=== PATIENT | female | born 1985 | race Caucasian/White ===

== ENCOUNTER 2018-01-25 11:28 | Emergency (ER) | payer OTHER ==
[2018-01-25] MEDS ORDERED: Ketorolac Tromethamine 60 MG/2 ML VIAL ONE (12:17)
--- NOTE | 2018-01-25 12:53 | RAD ---
RIGHT KNEE FOUR VIEWS: Indications: Injury and pain to knee. Comparison: November 2016 FINDINGS: Joint spaces are normally maintained. No fracture is seen. No joint effusion. Sclerosis along the medial cortex in the proximal tibia is stable from prior exam consistent with non -ossifying fibroma. IMPRESSION: No acute abnormality. POS: [facility]
== END 2018-01-25 12:44 | disposition home or self-care (01) ==
LOC: SCSER 11:28
DX: S86.911A Strain of unspecified muscle(s) and tendon(s) at lower leg level, right leg, initial encounter (principal); F43.10 Post-traumatic stress disorder, unspecified; F17.210 Nicotine dependence, cigarettes, uncomplicated; X50.1XXA Overexertion from prolonged static or awkward postures, initial encounter
CPT/HCPCS: 96372; J1885

== ENCOUNTER 2018-04-06 16:18 | Emergency (ER) | payer OTHER ==
[2018-04-06 16:45] LABS: #Basophils 0.1 thou/uL (0.0-0.2); #Eosinphils 0.1 thou/uL (0.0-0.7); #Lymphocytes 1.8 thou/uL (1.20-3.40); #Monocytes 0.5 thou/uL (0.11-0.59); #Neutrophils 6.2 thou/uL (1.40-6.50); %Basophils 1.2 % (0.0-1.0); %Eosinophils 0.7 % (0.0-10.0); %Lymphocytes 20.9 % (21.0-51.0); %Monocytes 5.5 % (0.0-10.0); %Neutrophils 71.7 % (42.0-75.0); Hemoglobin 14.8 g/dL (12.0-16.0); Mean Corpuscular HGB CONC 34.4 g/dL (32.0-36.0); Mean Corpuscular Hemoglobin 31.2 pg (27.0-31.0); Mean Corpuscular Volume 90.5 fL (78.0-98.0); Platelet Count 207 thou/uL (130-400); RBC Distribution Width 11.3 % (11.5-14.5); Red Blood Cell (RBC) Count 4.74 mill/uL (4.20-5.40); White Blood Cell (WBC) Count 8.7 thou/uL (4.8-10.8)
[2018-04-06 17:03] LABS: ALT (SGPT) 13 U/L (8-55); AST (SGOT) 17 U/L (5-34); Alkaline Phosphatase 44 U/L (40-150); Anion Gap 15 mmol/L (10-20); BUN (Urea Nitrogen) 10 mg/dL (7.0-18.7); Bilirubin, Total 0.8 mg/dL (0.2-1.2); CK (CPK) 57 U/L (29-168); Calc. Creatinine Clearance 0 mL/min (70-130); Calcium 9.9 mg/dL (7.8-10.44); Carbon Dioxide 23 mmol/L (22-29); Chloride 106 mmol/L (98-107); Estimated GFR-MDRD 64; Globulin 3.2 g/dL (2.4-3.5); Glucose 78 mg/dL (70-105); Lipase 10 U/L (8-78); Potassium 3.7 mmol/L (3.5-5.1); Protein, Total 8.2 g/dL (6.0-8.3); Sodium 140 mmol/L (136-145)
[2018-04-06 17:04] LABS: CKMB 0.4 ng/mL (0-6.6); Troponin I Less than 0.010 ng/mL (< 0.028)
--- NOTE | 2018-04-06 17:14 | RAD ---
UPRIGHT PORTABLE CHEST 1 VIEW: Date: 04/06/18 HISTORY: 32-year-old female with history of chest pain. Dizziness and lightheadedness. COMPARISON: 09/27/14. FINDINGS: Heart size is normal. Left ICD. The lungs are clear. No confluent pneumonia, overt edema, or pleural effusion. IMPRESSION: No acute intrathoracic disease. POS: [facility]
[2018-04-06] MEDS ORDERED: Ketorolac Tromethamine 30 MG/ML VIAL ONE (18:19)
[2018-04-06 18:55] LABS: Bilirubin Negative (Negative); Blood, Urine Negative (Negative); Clarity Slightly Cloudy (Clear); Glucose, Urine (Dipstick) Negative (Negative); Leukocyte Negative (Negative); Nitrite Negative (Negative); Protein, Urine (Dipstick) Negative (Neg-Trace); Urobilinogen 0.2 mg/dL (0.2-1.0)
[2018-04-06 18:56] LABS: Pregnancy Test - Urine (BHCG) Negative (Negative); Pregu Control Background? CLEAR/WHITE (CLR/WHITE); Pregu Control Bar Appear? YES (CONTROL BAR)
[2018-04-06 19:04] LABS: Amphetamine Not Detected (NotDetected); Barbiturates Screen Not Detected (NotDetected); Benzodiazepine Screen Not Detected (NotDetected); Cocaine Metabolite Screen Not Detected (NotDetected); Medtox Control Line Valid? VALID (VALID); Methadone Not Detected (NotDetected); Methamphetamine Not Detected (NotDetected); Opiate Screen Not Detected (NotDetected); Oxycodone Screen Not Detected (NotDetected); Phencyclidine (PCP) Not Detected (NotDetected); THC/Cannabinoid Screen Not Detected (NotDetected); Tricyclic Screen Not Detected (NotDetected)
[2018-04-06 19:50] LABS: Troponin I Less than 0.010 ng/mL (< 0.028)
== END 2018-04-06 19:49 | disposition home or self-care (01) ==
LOC: SCSER 16:18
DX: R07.9 Chest pain, unspecified (principal); Z71.6 Tobacco abuse counseling; F17.200 Nicotine dependence, unspecified, uncomplicated; F43.10 Post-traumatic stress disorder, unspecified
CPT/HCPCS: 71045; 80053; 80306; 81003; 81025; 82550; 82553; 83690; 84484; 85025; 85379; 93005; 96361; 96374; 99406; J1885

== ENCOUNTER 2018-04-10 15:14 | Emergency (ER) | payer OTHER ==
[2018-04-10 16:03] LABS: #Basophils 0.1 thou/uL (0.0-0.2); #Eosinphils 0.1 thou/uL (0.0-0.7); #Lymphocytes 2.1 thou/uL (1.20-3.40); #Monocytes 0.5 thou/uL (0.11-0.59); #Neutrophils 5.4 thou/uL (1.40-6.50); %Basophils 0.9 % (0.0-1.0); %Eosinophils 1.2 % (0.0-10.0); %Lymphocytes 25.1 % (21.0-51.0); %Monocytes 6.2 % (0.0-10.0); %Neutrophils 66.5 % (42.0-75.0); Hemoglobin 14.2 g/dL (12.0-16.0); Mean Corpuscular HGB CONC 33.2 g/dL (32.0-36.0); Mean Corpuscular Hemoglobin 30.3 pg (27.0-31.0); Mean Corpuscular Volume 91.5 fL (78.0-98.0); Platelet Count 200 thou/uL (130-400); RBC Distribution Width 11.3 % (11.5-14.5); Red Blood Cell (RBC) Count 4.68 mill/uL (4.20-5.40); White Blood Cell (WBC) Count 8.2 thou/uL (4.8-10.8)
--- NOTE | 2018-04-10 16:09 | RAD ---
COMPARISON: 04/06/18 HISTORY: Chest pain. FINDINGS: Single view of the chest shows a normal sized cardiomediastinal silhouette. There is a pacemaker, unc hanged in position. There is no evidence of consolidation, mass or pleural effusion. IMPRESSION: No evidence of acute cardiopulmonary disease. POS: [facility]
[2018-04-10 16:16] LABS: ALT (SGPT) 13 U/L (8-55); AST (SGOT) 15 U/L (5-34); Albumin 4.8 g/dL (3.5-5.0); Alkaline Phosphatase 38 U/L (40-150); Anion Gap 12 mmol/L (10-20); BUN (Urea Nitrogen) 14 mg/dL (7.0-18.7); Bilirubin, Total 0.5 mg/dL (0.2-1.2); CK (CPK) 60 U/L (29-168); Calc. Creatinine Clearance 0 mL/min (70-130); Calcium 9.5 mg/dL (7.8-10.44); Carbon Dioxide 26 mmol/L (22-29); Chloride 105 mmol/L (98-107); Estimated GFR-MDRD 57; Globulin 2.9 g/dL (2.4-3.5); Glucose 85 mg/dL (70-105); Magnesium 2.5 mg/dL (1.6-2.6); Potassium 3.8 mmol/L (3.5-5.1); Protein, Total 7.7 g/dL (6.0-8.3); Sodium 139 mmol/L (136-145)
[2018-04-10 16:19] LABS: CKMB 0.3 ng/mL (0-6.6); Troponin I Less than 0.010 ng/mL (< 0.028)
[2018-04-10 16:46] LABS: BHCG - Serum Negative (NEGATIVE); Pregs Control Background? CLEAR/WHITE (CLR/WHITE); Pregs Control Bar Appear? YES (CONTROL BAR)
== END 2018-04-10 17:36 | disposition home or self-care (01) ==
LOC: SCSER 15:14
DX: R00.0 Tachycardia, unspecified (principal); F43.10 Post-traumatic stress disorder, unspecified
CPT/HCPCS: 36415; 71045; 80053; 82553; 83735; 84484; 84703; 85025; 93005

== ENCOUNTER 2018-09-29 20:47 | Emergency (ER) | payer SELFPAY ==
--- NOTE | 2018-09-29 21:38 | RAD ---
AP VIEW CHEST: 09/29/18 HISTORY: Dyspnea. AP view chest obtained on 09/29/18. Comparison made to previous exam from 04/10/18. AP view chest demonstrates an intracardiac pacing device. The lungs are well aerated. No evidence of active intrathoracic disease seen. No evidence of effusions, pneumonia, or pneumothorax seen. IMPRESSION: Unremarkable AP view chest. POS: [facility]
[2018-09-29 21:43] LABS: #Basophils 0.1 thou/uL (0.0-0.2); #Eosinphils 0.2 thou/uL (0.0-0.7); #Lymphocytes 1.8 thou/uL (1.20-3.40); #Monocytes 0.6 thou/uL (0.11-0.59); #Neutrophils 3.4 thou/uL (1.40-6.50); %Basophils 1.3 % (0.0-1.0); %Eosinophils 2.9 % (0.0-10.0); %Lymphocytes 29.4 % (21.0-51.0); %Monocytes 9.4 % (0.0-10.0); Hemoglobin 13.8 g/dL (12.0-16.0); Mean Corpuscular HGB CONC 32.9 g/dL (32.0-36.0); Mean Corpuscular Hemoglobin 31.2 pg (27.0-31.0); Mean Corpuscular Volume 94.8 fL (78.0-98.0); Mean Platelet Volume 7.3 fL (7.4-10.4); Platelet Count 196 thou/uL (130-400); RBC Distribution Width 11.1 % (11.5-14.5); Red Blood Cell (RBC) Count 4.42 mill/uL (4.20-5.40)
[2018-09-29 21:59] LABS: ALT (SGPT) 15 U/L (8-55); AST (SGOT) 14 U/L (5-34); Albumin 4.5 g/dL (3.5-5.0); Alkaline Phosphatase 41 U/L (40-150); Anion Gap 12 mmol/L (10-20); BUN (Urea Nitrogen) 14 mg/dL (7.0-18.7); Bilirubin, Total 0.3 mg/dL (0.2-1.2); CK (CPK) 57 U/L (29-168); Calc. Creatinine Clearance 0 mL/min (70-130); Calcium 8.9 mg/dL (7.8-10.44); Carbon Dioxide 25 mmol/L (22-29); Chloride 107 mmol/L (98-107); Estimated GFR-MDRD 43; Globulin 2.9 g/dL (2.4-3.5); Glucose 90 mg/dL (70-105); Potassium 3.7 mmol/L (3.5-5.1); Protein, Total 7.4 g/dL (6.0-8.3); Sodium 140 mmol/L (136-145)
[2018-09-29] MEDS ORDERED: Dexamethasone 10 MG/ML VIAL ONE (22:17)
== END 2018-09-29 22:41 | disposition home or self-care (01) ==
LOC: SCSER 20:47
DX: J20.9 Acute bronchitis, unspecified (principal); F43.10 Post-traumatic stress disorder, unspecified; F17.200 Nicotine dependence, unspecified, uncomplicated
CPT/HCPCS: 71045; 80053; 82550; 83880; 84484; 85025; 85379; 93005; J1100; J7620

== ENCOUNTER 2019-01-28 16:13 | Emergency (ER) | payer MEDICAID, OTHER, SELFPAY | END 2019-01-28 16:43 | disposition home or self-care (01) | LOC: SCSER 16:13 | DX: S16.1XXA Strain of muscle, fascia and tendon at neck level, initial encounter (principal); F43.10 Post-traumatic stress disorder, unspecified; F17.210 Nicotine dependence, cigarettes, uncomplicated; Z79.899 Other long term (current) drug therapy; W22.8XXA Striking against or struck by other objects, initial encounter | CPT/HCPCS: 99283 ==

== ENCOUNTER 2019-06-04 16:40 | Day surgery (SDC) | payer OTHER ==
[2019-06-04] MEDS ORDERED: Iothalamate Meglumine 60% 50 ML VIAL FS ONE (17:09)
[2019-06-04] MEDS ORDERED: Midazolam HCl 2 mg/2 ml Vial ONE (17:29)
[2019-06-04] MEDS ORDERED: Fentanyl 100 MCG/2 ML VIAL ONE (17:29)
--- NOTE | 2019-06-04 18:50 | OP ---
DATE OF PROCEDURE: 06/04/2019 PREOPERATIVE DIAGNOSIS: Right distal ureteral stone. POSTOPERATIVE DIAGNOSIS: Right distal ureteral stone. PROCEDURES PERFORMED: Cystoscopy, right retrograde, and right stent. ANESTHESIA: General. ESTIMATED BLOOD LOSS: Minimal. FINDINGS: There is a right distal ureteral stone. It could be seen on her fluoroscopic KUB. DRAINS PLACED: A 4.8 x 22 Polaris double-J stent without a string attached. DESCRIPTION OF PROCEDURE: After obtaining written and verbal consent from the patient after receiving IV Ancef, she was taken to the operating suite. She was placed in the supine position on the treatment table. She was given a general anesthetic and oral intubation. She was positioned in a dorsal lithotomy position and prepped and draped, and C-arm was brought in. Cystoscopy was performed with a 22-Wolof sheath, this was well lubricated, passed under direct vision through the female urethra into the urinary bladder with aid of a 30-degree lens and video camera and monitor. The bladder was examined with both 30 and 70-degree lens. There was no tumor, foreign body, stone, or fistula. There was no evidence of urethral diverticulum or stenosis. Fluoroscopy was then used. Stone could be seen. We placed the catheter open-ended 5-Wolof into the right ureteral orifice, injecting contrast in a retrograde manner. The stone was quite distal and dilated above it. We could not get a guidewire by it, so we brought an angle-tipped Glidewire that we were able to easily manipulate by it. The open-ended catheter was then passed up in the region of renal pelvis. The Glidewire was removed. Contrast was injected to fill out the renal pelvis. The guidewire was placed through the open-ended catheter. The open-ended catheter was removed, and then the stent was brought in and placed over the guidewire and pushed up into place with aid of a pusher, so its proximal end coiled in the renal pelvis and its distal end coiled in the bladder when the wire was removed. It was effluxing a clear to light pink urine. There was no cloudiness or purulence or odor to it. The bladder was drained. The instruments were removed. She was taken out of the dorsal lithotomy position, awakened, extubated, and taken by stretcher to recovery room. Job ID: [id number]
[2019-06-04] MEDS ORDERED: Acetaminophen/Codeine 30-300mg Tablet ONE (19:31)
--- NOTE | 2019-06-04 23:47 | CON ---
DATE OF CONSULTATION: 06/04/2019 HISTORY OF PRESENT ILLNESS: This is a 34-year-old white female transferred over here from [place]. She had been in the ER twice in the last 2 days with right flank pain. Two days ago, a CT scan showed a 4 mm right distal ureteral stone with right hydro. Blood work was all normal at that time. Her pain was controlled. She went home. She came back with much worse pain today, nausea, vomiting, could not get her pain controlled. Her urinalysis was normal. Blood work was not done. KUB was done, but no other CAT scan. She was sent over here, because they could not get her pain restored under good control, coming over for stent. ALLERGIES: CIPRO, PENICILLIN AND LATEX. MEDICATIONS: Normally, she takes no medicine. She is on some Tylenol No. 3. PAST SURGICAL HISTORY: x3, BTL, and her current test is negative. She has had knee and wrist surgery, but no artificial joints. She has had a cholecystectomy. She had a heart ablation for ventricular tachycardia and she had a pacemaker placed. PHYSICAL EXAMINATION: VITAL SIGNS: Currently stable. She will receive Ancef 2 g go to the OR for cysto, right retrograde and right stent. This has all been discussed with her. All questions have been answered. Job ID: [id number]
--- NOTE | 2019-06-05 10:39 | RAD ---
RETROGRADE IVP: EXPOSURE: 7.87 mGy, 1 minute 1 second. FINDINGS: Single fluoroscopic view demonstrates retrograde opacification of what is likely the right intrarenal and extrarenal collecting system. A portion of a ureteral stent is noted. IMPRESSION: Intraoperative fluoroscopy as above. POS: [facility]
== END 2019-06-04 19:45 | disposition home or self-care (01) ==
LOC: SDC 16:40
PROVIDERS: ATTEND Urology
PROC: 0T768DZ Dilation of Right Ureter with Intraluminal Device, Via Natural or Artificial Opening Endoscopic (ICD-10-PCS; principal; 2019-06-04)
DX: N20.1 Calculus of ureter (principal); Z88.0 Allergy status to penicillin; Z88.1 Allergy status to other antibiotic agents; Z91.040 Latex allergy status; Z91.048 Other nonmedicinal substance allergy status
CPT/HCPCS: 74420; C1758; C1769; J0690; J2250; J3010

== ENCOUNTER 2019-06-25 07:58 | Day surgery (SDC) | payer OTHER ==
[2019-06-22 08:33] VITALS: BMI 22.1
[2019-06-25 09:31] LABS: #Basophils 0.1 thou/uL (0.0-0.2); #Eosinphils 0.2 thou/uL (0.0-0.7); #Lymphocytes 1.8 thou/uL (1.20-3.40); #Monocytes 0.4 thou/uL (0.11-0.59); #Neutrophils 3.3 thou/uL (1.40-6.50); %Basophils 1.3 % (0.0-1.0); %Eosinophils 3.5 % (0.0-10.0); %Monocytes 7.2 % (0.0-10.0); Hemoglobin 14.2 g/dL (12.0-16.0); Mean Corpuscular HGB CONC 34.2 g/dL (32.0-36.0); Mean Corpuscular Hemoglobin 32.7 pg (27.0-31.0); Mean Corpuscular Volume 95.4 fL (78.0-98.0); Mean Platelet Volume 7.9 fL (7.4-10.4); Platelet Count 242 thou/uL (130-400); RBC Distribution Width 11.1 % (11.5-14.5); Red Blood Cell (RBC) Count 4.34 mill/uL (4.20-5.40); White Blood Cell (WBC) Count 5.7 thou/uL (4.8-10.8)
[2019-06-25 09:45] LABS: Anion Gap 11 mmol/L (10-20); BUN (Urea Nitrogen) 11 mg/dL (7.0-18.7); Calc. Creatinine Clearance 69 mL/min (70-130); Calcium 9.2 mg/dL (7.8-10.44); Carbon Dioxide 25 mmol/L (22-29); Chloride 104 mmol/L (98-107); Estimated GFR-MDRD 59; Glucose 88 mg/dL (70-105); Potassium 3.8 mmol/L (3.5-5.1); Sodium 136 mmol/L (136-145)
[2019-06-25] MEDS ORDERED: Iothalamate Meglumine 60% 50 ML VIAL FS ONE (10:01)
[2019-06-25] MEDS ORDERED: Fentanyl 100 MCG/2 ML VIAL ONE ×2 (10:11→11:27)
[2019-06-25] MEDS ORDERED: Midazolam HCl 2 mg/2 ml Vial ONE (10:11)
[2019-06-25] MEDS ORDERED: HYDROcodone/Acetaminophen 5/325 mg Tablet ONE (12:41)
--- NOTE | 2019-06-25 13:01 | RAD ---
RETROGRADE PYELOGRAM: Date: 04/25/2020 HISTORY: Right-sided renal stone disease. FINDINGS: Eight images are provided from a retrograde pyelogram. Initial images demonstrate a stent overlying t he right ureter. Later imaging demonstrates removal of stent. Contrast media within the intrarenal co llecting system on the right demonstrates mild blunting of the calices, which may signify a mild degr ee of hydronephrosis. IMPRESSION: Mild blunting of the calices on the right. Removal of right stent. POS: [facility]
--- NOTE | 2019-06-25 13:30 | OP ---
DATE OF PROCEDURE: 06/25/2019 PREOPERATIVE DIAGNOSES: 1. Right ureteral stone. 2. Right ureteral stent. POSTOPERATIVE DIAGNOSES: 1. Right ureteral stone. 2. Right ureteral stent. PROCEDURES PERFORMED: 1. Cystoscopy. 2. Removal of right stent. 3. Right rigid ureteroscopy. 4. Right retrograde. ANESTHETIC: General. ESTIMATED BLOOD LOSS: Minimal. FINDINGS: The stent was in good condition, it was patent. A right ureteroscopy failed to show any evidence of any ureteral stones or abnormality of the ureter. There is good efflux of urine after the retrograde study. Stent was not replaced. DESCRIPTION OF PROCEDURE: After obtaining written and verbal consent from the patient, after receiving IV antibiotics, she was taken to the operating suite. She was placed in supine position on the treatment table. PlexiPulses were placed on her lower extremities and turned on. She was given a general anesthetic and oral obturator intubation. She was placed in the dorsal lithotomy position and sterilely prepped and draped. Cystoscopy was performed with a 22-Faroese sheath. This was well lubricated and passed under direct vision through the female urethra into the bladder with aid of a 30-degree lens and video camera and monitor. The bladder was filled and emptied 3 times and then the distal end of double-J stent was grasped and brought out through the urethral meatus. A guidewire was fed up through this, and using fluoroscopic guidance, it was placed up in the position of the renal pelvis. The stent was removed and discarded. A small caliber graduated rigid ureteroscope was brought in and passed under direct vision through the female urethra into the bladder and up the right ureter all the way up to the right renal pelvis. There were no stones evident. We looked at the ureter on the way out and did not see any stones or abnormality either. We actually reviewed her CAT scan from 06/02. There was no evidence of any right renal stones. We shot contrast up this right side by placing a Councill tip catheter over the guidewire and up in the region of renal pelvis, removed the guidewire, injecting about 15 mL of dilute contrast and then removing the Pollack catheter, watching efflux out the right ureteral orifice and watching it clear on her fluoroscopic KUB. At this point, the patient was taken out of the dorsal lithotomy position, awakened, extubated, and taken by stretcher to recovery room. Job ID: [id number]
[2019-06-25] MEDS ORDERED: Dexamethasone 20 MG/5 ML VIAL ONE (13:59)
[2019-06-25] MEDS ORDERED: Ondansetron PF 4 MG/2 ML Vial ONE (13:59)
[2019-06-25] MEDS ORDERED: Ketorolac Tromethamine 30 MG/ML VIAL ONE (13:59)
[2019-06-25] MEDS ORDERED: PROPOFOL 200 MG/20 ML VIAL ONE (13:59)
--- NOTE | 2019-06-27 13:36 | EKG ---
Test Reason : PREOP Blood Pressure : / mmHG Vent. Rate : 065 BPM Atrial Rate : 065 BPM P-R Int : 194 ms QRS Dur : 080 ms QT Int : 434 ms P-R-T Axes : -13 073 060 degrees QTc Int : 451 ms Electronic atrial pacemaker No previous ECGs available Confirmed by JOB DYER (2) on 06/27/2019 1:36:01 PM Referred By: ROGER Confirmed By:JOB DYER
== END 2019-06-25 13:15 | disposition home or self-care (01) ==
LOC: SDC 07:58
PROVIDERS: ATTEND Urology
PROC: 0TP98DZ Removal of Intraluminal Device from Ureter, Via Natural or Artificial Opening Endoscopic (ICD-10-PCS; principal; 2019-06-25)
DX: N20.1 Calculus of ureter (principal); Z79.2 Long term (current) use of antibiotics; Z79.899 Other long term (current) drug therapy; Z88.0 Allergy status to penicillin; Z88.1 Allergy status to other antibiotic agents; Z91.040 Latex allergy status; Z91.048 Other nonmedicinal substance allergy status; Z95.0 Presence of cardiac pacemaker
CPT/HCPCS: 36415; 74420; 80048; 85025; 93005; 93010; C1758; J0690; J1100; J1885; J2250; J2405; J2704; J3010

== ENCOUNTER 2020-01-15 10:51 | Outpatient (CLI) | payer OTHER ==
--- NOTE | 2020-01-15 11:23 | CT ---
CT Stone Protocol 01/15/2020 12:00 AM HISTORY: Recurrent renal calculi. Hematuria. COMPARISON: CT abdomen and pelvis on 06/02/2019 obtained from [facility]. Technique: Multiple contiguous axial CT images are obtained through the abdomen and pelvis without IV contrast. Coronal reformats are provided. FINDINGS: This examination is limited for the evaluation of solid organs and vascular structures due to the lac k of intravenous contrast. Lower Chest: Partial visualization of cardiac pacemaking lead. Lung bases are clear. Abdomen: Liver: Grossly normal non-enhanced CT appearance. Gallbladder: Surgically absent. Pancreas: Grossly normal nonenhanced CT appearance. Spleen: Grossly normal nonenhanced CT appearance. Adrenals: Grossly normal nonenhanced CT appearance. Kidneys: Punctate nonobstructing calculus inferior pole left kidney. No additional renal calculi are seen bilaterally, and there is no hydronephrosis. Previously noted hydronephrosis on the right has resolved. Ureters: A calcification is seen in the right adnexal region probably due to phlebolith or gonadal ve in calcification. This was also present on the prior exam. Previously seen distal right ureteral calculus is not visualized on this exam and is likely due to either interval treatment or interval pa ssage when compared to prior exam.. Pelvis: Urinary bladder: Grossly normal in appearance for degree of distention. Reproductive Organs: No pelvic masses. Lymph Nodes: Limited evaluation due to nonenhanced appearance of the abdomen and pelvis, but no defin ite enlarged lymph nodes are appreciated. Bowel: Small amount retained fecal material seen throughout the colon. Loops of small bowel are edna l in caliber. Appendix: Portions of the appendix are visualized and normal in caliber. Peritoneum: Small amount of free fluid is seen in the lower pelvis likely physiologic in origin. Retroperitoneum: within normal limits. Vessels: Abdominal aorta is normal in caliber.. Abdominal Wall: within normal limits. Bones: No suspicious lytic or sclerotic osseous lesions are identified. Sclerotic densities in each h umeral head is present demonstrate characteristics compatible with bone islands. IMPRESSION: 1. Punctate nonobstructing left renal calculus. No right renal calculus is seen, and there are no ure teral calculi visualized bilaterally. 2. Calcification right hemipelvis likely related to a small phlebolith gonadal vein calcification whi ch was also present on prior exam. The previously noted distal right ureteral calculus is no longer visualized. The right hydronephrosis and hydroureter has resolved.
== END 2020-01-15 10:52 | disposition home or self-care (01) ==
LOC: SCSCT 10:51
PROVIDERS: ATTEND Urology
DX: N20.0 Calculus of kidney (principal); R31.9 Hematuria, unspecified; N28.89 Other specified disorders of kidney and ureter
CPT/HCPCS: 74176

== ENCOUNTER 2021-06-23 11:30 | Outpatient (CLI) | payer OTHER ==
[2021-06-23 12:38] LABS: Hemoglobin 14.8 g/dL (12.0-15.5); Mean Corpuscular HGB CONC 33.9 g/dL (32.0-36.0); Mean Corpuscular Hemoglobin 31.4 pg (27.0-33.0); Mean Corpuscular Volume 92.8 fl (81.6-98.3); Mean Platelet Volume 10.5 fl (7.4-10.4); Platelet Count 190 10x3/uL (150-450); Red Blood Cell (RBC) Count 4.71 10x6/uL (3.90-5.03)
[2021-06-23 12:53] LABS: BHCG - Serum Negative (NEGATIVE); Pregs Control Background? CLEAR/WHITE (CLR/WHITE); Pregs Control Bar Appear? YES (CONTROL BAR)
[2021-06-23 12:58] LABS: Anion Gap 13 mmol/L (10-20); BUN (Urea Nitrogen) 9 mg/dL (7.0-18.7); Calc. Creatinine Clearance 0 mL/min (70-130); Carbon Dioxide 24 mmol/L (22-29); Chloride 108 mmol/L (98-107); Glucose 75 mg/dL (70-105); Prothrombin Time 10.7 sec (9.5-12.1); Sodium 141 mmol/L (136-145)
[2021-06-23 22:37] LABS: SARS-CoV-2 PCR by NAA DETECTED (NotDetected)
== END 2021-06-23 11:31 | disposition home or self-care (01) ==
LOC: LABBT 11:30
PROVIDERS: ATTEND Internal Medicine Cardiovascular Disease
DX: Z01.812 Encounter for preprocedural laboratory examination (principal); U07.1 COVID-19; I49.5 Sick sinus syndrome
CPT/HCPCS: 80048; 84703; 85027; 85610; U0003; U0005

== ENCOUNTER 2021-07-09 09:53 | Day surgery (SDC) | payer OTHER ==
[2021-06-18 14:12] VITALS: BMI 23.3
[2021-07-09] MEDS ORDERED: Vancomycin 1.5 GRAM/300 ML BAG ONE (10:13)
[2021-07-09] MEDS ORDERED: diphenhydrAMINE 50 MG/ML VIAL ONE (12:30)
[2021-07-09] MEDS ORDERED: Midazolam HCl 2 mg/2 ml Vial ONE ×2 (12:45→15:31)
[2021-07-09] MEDS ORDERED: Midazolam HCl 2 mg/2 ml Vial IVP SCH (13:00)
[2021-07-09] MEDS ORDERED: diphenhydrAMINE 50 MG/ML VIAL IVP SCH (13:00)
[2021-07-09] MEDS ORDERED: Clindamycin/D5W 900 mg/50 ml Premix Bag ONE (14:06)
[2021-07-09] MEDS ORDERED: Lidocaine 1% (PF) 30 ML VIAL ONE (14:06)
[2021-07-09] MEDS ORDERED: Gentamicin 80 MG/2 ML VIAL ONE (14:06)
[2021-07-09] MEDS ORDERED: Fentanyl 100 MCG/2 ML VIAL ONE ×3 (15:31→17:14)
[2021-07-09] MEDS ORDERED: Propofol 500 MG/50 ML VIAL ONE (15:36)
[2021-07-09] MEDS ORDERED: Ondansetron PF 4 MG/2 ML Vial ONE ×2 (15:56→16:19)
[2021-07-09] MEDS ORDERED: Morphine 4 MG/ML VIAL ONE (18:19)
[2021-07-09] MEDS ORDERED: HYDROcodone/Acetaminophen 5/325 mg Tablet ONE (19:45)
== END 2021-07-09 20:04 | disposition home or self-care (01) ==
LOC: SDC 09:53
PROVIDERS: ATTEND Internal Medicine Cardiovascular Disease
PROC: 0JH607Z Insertion of Cardiac Resynchronization Pacemaker Pulse Generator into Chest Subcutaneous Tissue and Fascia, Open Approach (ICD-10-PCS; principal; 2021-07-09)
PROC: 3E0102A Introduction of Anti-Infective Envelope into Subcutaneous Tissue, Open Approach (ICD-10-PCS; principal; 2021-07-09)
PROC: 0JPT0PZ Removal of Cardiac Rhythm Related Device from Trunk Subcutaneous Tissue and Fascia, Open Approach (ICD-10-PCS; principal; 2021-07-09)
DX: I49.5 Sick sinus syndrome (principal); I49.3 Ventricular premature depolarization; I47.2 Ventricular tachycardia; F17.210 Nicotine dependence, cigarettes, uncomplicated; Z88.0 Allergy status to penicillin; Z88.1 Allergy status to other antibiotic agents; Z91.040 Latex allergy status; Z91.048 Other nonmedicinal substance allergy status
CPT/HCPCS: 33228; 71045; C1785; J1200; J1580; J2001; J2250; J2270; J2405; J2704; J3010; J3370; J3490